=== PATIENT | female | born 1960 | race American Indian/Alaskan Native ===

== ENCOUNTER 2018-04-12 12:59 | Inpatient (IN) | payer OTHER, BC ==
[2018-04-12 17:33] VITALS: BMI 51.2
[2018-04-12] MEDS ORDERED: Oxycodone/Acetaminophen 5/325 mg Tab PO PRN (18:22)
[2018-04-12] MEDS ORDERED: Ergocalciferol 50,000 Intl Units Cap PO SCH (18:30)
[2018-04-12] MEDS: Oxycodone/Acetaminophen 5/325 mg Tab PO PRN (19:58)
[2018-04-12 20:28] VITALS: RESP 20
[2018-04-12] MEDS: ceFAZolin IV 2 gm in Dextrose 2 GM/50 ML BAG IVPB SCH (21:28)
--- NOTE | 2018-04-12 23:48 | CP.PCM.PN ---
Subjective - Subjective Subjective: dictated Objective - Vital Signs/Intake and Output Vital Signs (last 24 hours): Temp Pulse Resp BP Pulse Ox 100.3 F H 105 H 20 135/73 99 04/12/18 20:28 04/12/18 20:28 04/12/18 20:28 04/12/18 20:28 04/12/18 20:28 - Medications Medications: Current Medications Acetaminophen (Tylenol 325mg Tab) 650 mg PO Q4 PRN PRN Reason: Fever 101 degrees fahrenheit Acetaminophen (Tylenol 325mg Tab) 650 mg PO Q4 PRN PRN Reason: for pain level 1-3 Acetaminophen (Tylenol 325mg Tab) 650 mg PO Q4 PRN PRN Reason: for temp 101 Docusate Sodium (Colace) 100 mg PO BID [facility] Enoxaparin Sodium (Lovenox) 40 mg SC Q24H [facility]; Protocol Ergocalciferol (Drisdol 50,000 Intl Units Cap) 1 cap PO QWK [facility] Famotidine (Pepcid) 20 mg PO BID [facility] Ferrous Sulfate (Feosol) 325 mg PO DAILY [facility] Home Med (Iron/Folate No.6/Mv,Mins No.40 [Corvite Fe Tablet]) 1 each PO DAILY [facility] Home Med (Vitamin B Complex [Berroca]) 1 tab PO DAILY [facility] Cefazolin Sodium/Dextrose (Ancef Iv 2 Gm Duplex) 2 gm in 50 mls @ 50 mls/hr IVPB Q8H [facility] Last Admin: 04/12/18 21:28 Dose: 50 mls/hr Losartan Potassium (Cozaar) 100 mg PO DAILY [facility] Multivitamins/Minerals (Therapeutic-M Tab) 1 tab PO DAILY [facility] Oxybutynin Chloride (Ditropan Tab) 5 mg PO BID [facility] Oxycodone/Acetaminophen (Percocet 5/325 Mg Tab) 2 tab PO Q4H PRN PRN Reason: Pain, severe (8-10) Stop: 04/15/18 18:23 Last Admin: 04/12/18 19:58 Dose: 2 tab Oxycodone/Acetaminophen (Percocet 5/325 Mg Tab) 1 tab PO Q4 PRN PRN Reason: for pain level 4-7 Stop: 04/15/18 18:23
[2018-04-13] MEDS: Oxycodone/Acetaminophen 5/325 mg Tab PO PRN ×5 (01:07→22:26)
[2018-04-13] MEDS: ceFAZolin IV 2 gm in Dextrose 2 GM/50 ML BAG IVPB SCH ×3 (04:26→22:27)
[2018-04-13] MEDS: Enoxaparin 40 mg Syringe SC SCH (08:56)
[2018-04-13] MEDS ORDERED: Multivitamin With Minerals Tab PO SCH (09:00)
[2018-04-13] MEDS ORDERED: VITAMIN B COMPLEX PO SCH (09:00)
[2018-04-13 09:29] LABS: BASO # 0.1 K/uL (0.0-0.2); BASO % 0.9 % (0.0-2.0); EOS % 0.3 % (0.0-4.0); HEMOGLOBIN 10.2 g/dL (12.0-16.0); LYMPH # 2.4 K/uL (1.0-4.3); LYMPH % 23.1 % (20.0-40.0); MEAN CELL VOLUME 90.1 fl (81.0-99.0); MEAN CORPUSCULAR HEMOGLOBIN 29.8 pg (27.0-31.0); MEAN CORPUSCULAR HGB CONC 33.1 g/dL (33.0-37.0); MEAN PLATELET VOLUME 9.6 fl (7.2-11.7); MONO # 0.8 K/uL (0.0-0.8); MONO % 8.1 % (0.0-10.0); NEUT % 67.6 % (50.0-75.0); NRBC % 0.1 % (0.0-0.0); RBC 3.42 Mil/uL (3.80-5.20); RED CELL DISTRIBUTION WIDTH 14.3 % (11.5-14.5); WHITE BLOOD COUNT 10.3 K/uL (4.8-10.8)
[2018-04-13 09:45] LABS: BLOOD UREA NITROGEN 7 mg/dl (7-17); CALCIUM 9.2 mg/dL (8.4-10.2); GFR NON-AFRICAN AMERICAN > 60
[2018-04-13 09:47] LABS: ALBUMIN 4.2 g/dL (3.5-5.0); ALT/SGPT 8 U/L (9-52); AST/SGOT 45 U/L (14-36)
[2018-04-13] MEDS: Multivitamin With Minerals Tab PO SCH (12:24)
--- NOTE | 2018-04-13 17:14 | CP.PCM.CON ---
History of Present Illness - History of Present Illness History of Present Illness: Dr Joiner PMR consultation on Tatiana Jacobo, born 1960 who has been admitted to the TCU for FANY following an elective right TKR. Post op stable. No BM yet. Pain is controlled. No numbness or fever. Had been independent [employer] Review of Systems - Constitutional Constitutional: absent: Anorexia, Chills - EENT Eyes: absent: Change in Vision Ears: absent: Ear Discharge, Ear Pain Nose/Mouth/Throat: absent: Nasal Congestion, Nasal Discharge - Cardiovascular Cardiovascular: absent: Chest Pain, Chest Pain at Rest - Respiratory Respiratory: absent: Cough, Dyspnea, Hemoptysis - Gastrointestinal Gastrointestinal: Constipation. absent: Abdominal Pain - Musculoskeletal Musculoskeletal: absent: Numbness - Integumentary Integumentary: absent: Bleeding Lesions - Neurological Neurological: absent: Memory Loss, Paresthesias, Radicular Pain - Psychiatric Psychiatric: absent: Anxiety Past Patient History - Past Medical History & Family History Past Medical History?: Yes - Past Social History Smoking Status: Never Smoked Chewing Tobacco Use: No Cigar Use: No Alcohol: None Drugs: Denies Home Situation {Lives}: Friends (with a few steps) - CARDIAC Hx Cardiac Disorders: Yes Hx Hypercholesterolemia: Yes Hx Hypertension: Yes - PULMONARY Hx Respiratory Disorders: Yes Hx Sleep Apnea: Yes (CPAP) - NEUROLOGICAL Hx Neurological Disorder: Yes Other/Comment: HX: FREQUENT HEADACHES - HEENT Hx HEENT Problems: No - RENAL Hx Chronic Kidney Disease: No - ENDOCRINE/METABOLIC Hx Diabetes Mellitus Type 2: Yes - HEMATOLOGICAL/ONCOLOGICAL Hx AIDS: No Hx Human Immunodeficiency Virus (HIV): No - INTEGUMENTARY Hx Dermatological Problems: Yes Other/Comment: HX: CYST ON RIGHT WRIST - MUSCULOSKELETAL/RHEUMATOLOGICAL Hx Back Pain: Yes Hx Falls: No Hx Osteoarthritis: Yes - GASTROINTESTINAL Hx Gastrointestinal Disorders: Yes - GENITOURINARY/GYNECOLOGICAL Hx Genitourinary Disorders: Yes Other/Comment: HX: URINARY FREQUENCY. HX: FIBROID UTERUS - PSYCHIATRIC Hx Substance Use: No - SURGICAL HISTORY Hx Surgeries: Yes Hx Hysterectomy: Yes (PARTIAL HYSTERECTOMY) Other/Comment: HX: CYST REMOVED RIGHT WRIST, Rt TKR 04/09/18 - ANESTHESIA Hx Anesthesia: Yes Hx Anesthesia Reactions: No Hx Malignant Hyperthermia: No Meds Allergies/Adverse Reactions: Allergies Allergy/AdvReac Type Severity Reaction Status Date / Time No Known Allergies Allergy Verified 03/08/18 08:49 - Medications Medications: Current Medications Acetaminophen (Tylenol 325mg Tab) 650 mg PO Q4 PRN PRN Reason: Fever 101 degrees fahrenheit Acetaminophen (Tylenol 325mg Tab) 650 mg PO Q4 PRN PRN Reason: for pain level 1-3 Acetaminophen (Tylenol 325mg Tab) 650 mg PO Q4 PRN PRN Reason: for temp 101 Docusate Sodium (Colace) 100 mg PO BID [facility] Last Admin: 04/13/18 16:42 Dose: 100 mg Enoxaparin Sodium (Lovenox) 40 mg SC Q24H [facility]; Protocol Last Admin: 04/13/18 08:56 Dose: 40 mg Ergocalciferol (Drisdol 50,000 Intl Units Cap) 1 cap PO QWK [facility] Famotidine (Pepcid) 20 mg PO BID [facility] Last Admin: 04/13/18 16:42 Dose: 20 mg Ferrous Sulfate (Feosol) 325 mg PO DAILY [facility] Last Admin: 04/13/18 09:01 Dose: 325 mg Cefazolin Sodium/Dextrose (Ancef Iv 2 Gm Duplex) 2 gm in 50 mls @ 50 mls/hr IVPB Q8H [facility] Last Admin: 04/13/18 12:10 Dose: 50 mls/hr Lactulose (Enulose) 20 gm PO Q12 PRN PRN Reason: Constipation Losartan Potassium (Cozaar) 100 mg PO DAILY [facility] Last Admin: 04/13/18 08:56 Dose: 100 mg Multivitamins/Minerals (Therapeutic-M Tab) 1 tab PO DAILY [facility] Last Admin: 04/13/18 12:24 Dose: Not Given Oxybutynin Chloride (Ditropan Tab) 5 mg PO BID [facility] Last Admin: 04/13/18 16:42 Dose: 5 mg Oxycodone/Acetaminophen (Percocet 5/325 Mg Tab) 2 tab PO Q4H PRN PRN Reason: Pain, severe (8-10) Stop: 04/15/18 18:23 Last Admin: 04/13/18 16:42 Dose: 2 tab Oxycodone/Acetaminophen (Percocet 5/325 Mg Tab) 1 tab PO Q4 PRN PRN Reason: for pain level 4-7 Stop: 04/15/18 18:23 Physical Exam - Constitutional Appears: Non-toxic, No Acute Distress - Head Exam Head Exam: ATRAUMATIC, NORMOCEPHALIC - Eye Exam Eye Exam: EOMI - ENT Exam ENT Exam: Mucous Membranes Moist - Respiratory Exam Respiratory Exam: NORMAL BREATHING PATTERN - Cardiovascular Exam Cardiovascular Exam: REGULAR RHYTHM - GI/Abdominal Exam GI & Abdominal Exam: Normal Bowel Sounds - Extremities Exam Extremities exam: Negative for: calf tenderness - Neurological Exam Neurological exam: Alert, CN II-XII Intact, Oriented x3 - Psychiatric Exam Psychiatric exam: Normal Affect, Normal Mood - Skin Skin Exam: Warm Results - Vital Signs Recent Vital Signs: Last Vital Signs Temp 99.4 F 04/13/18 15:56 Pulse 95 H 04/13/18 15:56 Resp 20 04/13/18 15:56 BP 116/71 04/13/18 15:56 Pulse Ox 97 04/13/18 15:56 - Labs Result Diagrams: 04/13/18 09:20 04/13/18 09:20 Labs: Laboratory Results - last 24 hr 04/13/18 04/13/18 09:20 09:20 WBC 10.3 RBC 3.42 L Hgb 10.2 L Hct 30.8 L MCV 90.1 MCH 29.8 MCHC 33.1 RDW 14.3 Plt Count 310 MPV 9.6 Neut % (Auto) 67.6 Lymph % (Auto) 23.1 [place] % (Auto) 8.1 Eos % (Auto) 0.3 Baso % (Auto) 0.9 Neut # (Auto) 7.0 Lymph # (Auto) 2.4 [place] # (Auto) 0.8 Eos # (Auto) 0.0 Baso # (Auto) 0.1 Sodium 137 Potassium 4.3 Chloride 99 Carbon Dioxide 27 Anion Gap 15 BUN 7 Creatinine 0.7 Est GFR ( Amer) > 60 Est GFR (Non-Af Amer) > 60 Random Glucose 134 H Calcium 9.2 Total Bilirubin 0.8 AST 45 H D ALT 8 L Alkaline Phosphatase 87 Total Protein 8.4 H Albumin 4.2 Globulin 4.2 H Albumin/Globulin Ratio 1.0 Assessment & Plan - Assessment and Plan (Free Text) Assessment: 58 year old female s/p right TKR stable pain is controlled no neuro complaints PT/OT to continue to help increase functional independence Pain: controlled Vascular: no evidence of DVT GI: + constipation, increase bowel regimen Patient continues to be an excellent TCU rehabilitation candidate and will have continued focused PT, OT and recreational therapy to help facilitate a safe and appropriate d/c plan
[2018-04-14] MEDS: Oxycodone/Acetaminophen 5/325 mg Tab PO PRN ×5 (02:48→20:30)
[2018-04-14] MEDS: Enoxaparin 40 mg Syringe SC SCH (08:16)
[2018-04-14] MEDS: Multivitamin With Minerals Tab PO SCH (08:17)
--- NOTE | 2018-04-14 12:43 | CP.PCM.CON ---
History of Present Illness - History of Present Illness History of Present Illness: 58 yo female referred for ID eval for antibiotic management Went to [place] @ on 04/12 for right TKR synovial fluid analysis revealed 3300 WBC and sent for culture Had one low grade temp at but denies fever chills cough SOB or dysuria PMH- HTN , HLD, Hyperglycemia NKDA FH- HTN Review of Systems - Review of Systems All systems: reviewed and no additional remarkable complaints except - Constitutional Constitutional: As Per HPI. absent: Chills, Fever, Headache, Night Sweats - EENT Eyes: absent: As Per HPI, Blind Spots, Blurred Vision, Change in Vision, Decreased Night Vision, Diplopia, Discharge, Dry Eye, Exophthalmos, Floaters, Irritation, Itchy Eyes, Loss of Peripheral Vision, Pain, Photophobia, Requires Corrective Lenses, Sees Flashes, Spots in Vision, Tunnel Vision, Other Visual Disturbances, Loss of Vision, Other Ears: absent: As Per HPI, Decreased Hearing, Ear Discharge, Ear Pain, Tinnitus, Abnormal Hearing, Disequilibrium, Dizziness, Other Nose/Mouth/Throat: absent: As Per HPI, Epistaxis, Nasal Congestion, Nasal D ischarge, Nasal Obstruction, Nasal Trauma, Nose Pain, Post Nasal Drip, Sinus Pain, Sinus Pressure, Bleeding Gums, Change in Voice, Dental Pain, Dry Mouth, Dysphagia, Halitosis, Hoarsness, Lip Swelling, Mouth Lesions, Mouth Pain, Odynophagia, Sore Throat, Throat Swelling, Tongue Swelling, Facial Pain, Neck Pain, Neck Mass, Other - Cardiovascular Cardiovascular: absent: As Per HPI, Acrocyanosis, Chest Pain, Chest Pain at Rest, Chest Pain with Activity, Claudication, Diaphoresis, Dyspnea, Dyspnea on Exertion, Edema, Irregular Heart Rhythm, Pain Radiating to Arm/Neck/Jaw, Leg Edema, Leg Ulcers, Lightheadedness, Orthopnea, Palpitations, Paroxysmal Nocturnal Dyspnea, Pedal Edema, Radiating Pain, Rapid Heart Rate, Slow Heart Rate, Syncope, Other - Respiratory Respiratory: absent: As Per HPI, Cough, Dyspnea, Hemoptysis, Dyspnea on Exertion, Wheezing, Snoring, Stridor, Pain on Inspiration, Chest Congestion, Excessive Mucous Production, Change in Mucous Color, Pain with Coughing, Other - Gastrointestinal Gastrointestinal: absent: As Per HPI, Abdominal Pain, Belching, Bloating, Change in Bowel Habits, Change in Stool Character, Coffee Ground Emesis, Constipation, Cramping, Diarrhea, Dyspepsia, Dysphagia, Early Satiety, Excessive Flatus, Fecal Incontinence, Heartburn, Hematemesis, Hematochezia, Loose Stools, Melena, Nausea, Odynophagia, Temesmus, Vomiting, Other - Genitourinary Genitourinary: absent: As Per HPI, Change in Urinary Stream, Difficulty Urinating, Dysuria, Flank Pain, Hematuria, Pyuria, Nocturia, Urinary Incontinence, Urinary Frequency, Urinary Hesitance, Urinary Urgency, Voiding Freq/Small Amts, Freq UTI, Hx Renal/Bladder Calculi, Hx /Renal Surgery, Bladder Distension, Other - Reproductive: Female Reproductive:Female: absent: As Per HPI, Amenorrhea, Amenorrhea/ Control, Currently Menstual, Cycle <21 Days, Cycle >35 Days, Cycle Variable, Menses 1-7 Days, Menses >/= 8 Days, Menses Variable, Cycle > 4 Weeks Between, No Menses for 6 Months, Heavy Menses, Light Menses, Normal Menses, Spotting Between Cycles, S/P Hysterectomy, Menopausal, Post Menopausal, Premenarche, Abnormal Vaginal Bleeding, Dysmenorrhea, Dyspareunia, Genital Lesions, Genital Pruritis, Pelvic Pain, Prolapse Symptoms, Sexual Dysfunction, Vaginal Discharge, Vaginal Dryness, Vaginal Odor, Vaginal Pruritis, Other - Menstruation Menstruation: absent: As Per HPI, Amenorrhea, Amenorrhea/ Control, Currently Menstual, Cycle <21 Days, Cycle >35 Days, Cycle Variable, Menses 1-7 Days, Menses >/= 8 Days, Menses Variable, Cycle > 4 Weeks Between, No Menses for 6 Months, Heavy Menses, Light Menses, Normal Menses, Spotting Between Cycles, S/P Hysterectomy, Menopausal, Post Menopausal, Premenarche, Abnormal Vaginal Bleeding, Dysmenorrhea, Other - Musculoskeletal Musculoskeletal: As Per HPI - Integumentary Integumentary: absent: As Per HPI, Acne, Alopecia, Bleeding Lesions, Change in Hair, Change in Nails, Change in Pigmentation, Changing Lesions, Dry Skin, Erythema, Furuncle, Hirsutism, Lesions, New Lesions, Non-Healing Lesions, Photosensitivity, Pruritus, Rash, Skin Pain, Skin Ulcer, Sores, Striae, Swelling, Unusual Bruising, Wounds, Jaundice, Other - Neurological Neurological: absent: As Per HPI, Abnormal Gait, Abnormal Hearing, Abnormal Movements, Abnormal Speech, Behavioral Changes, Burning Sensations, Confusion, Convulsions, Disequilibrium, Dizziness, Numbness, Focal Weakness, Frequent Falls, Headaches, Lack of Coordination, Loss of Vision, Memory Loss, Paresthesias, Radicular Pain, Restless Legs, Sensory Deficit, Syncope, Tingling, Tremor, Vertigo, Weakness, Other Visual Disturbances, Other - Psychiatric Psychiatric: absent: As Per HPI, Abnormal Sleep Pattern, Anhedonia, Anxiety, Auditory Hallucinations, Behavioral Changes, Change in Appetite, Change in Libido, Confusion, Depression, Difficulty Concentrating, Hallucinations, Homicidal Ideation, Hopelessness, Irritability, Memory Loss, Mood Swings, Panic Attacks, Paranoia, Suicidal Ideation, Visual Hallucinations, Tactile Hallucinations, Other - Endocrine Endocrine: absent: As Per HPI, Change in Body Appearance, Change in Libido, Cold Intolorance, Deepening of Voice, Excessive Sweating, Fatigue, Flushing, Heat Intolorance, Increase in Ring/Shoe/Hat Size, Palpitations, Polydipsia, Polyphagia, Polyuria, Other - Hematologic/Lymphatic Hematologic: absent: As Per HPI, Easy Bleeding, Easy Bruising, Lymphadenopathy, Other Past Patient History - Past Medical History & Family History Past Medical History?: Yes - Past Social History Smoking Status: Never Smoked Chewing Tobacco Use: No Cigar Use: No Alcohol: None Drugs: Denies Home Situation {Lives}: Friends (with a few steps) - CARDIAC Hx Cardiac Disorders: Yes Hx Hypercholesterolemia: Yes Hx Hypertension: Yes - PULMONARY Hx Respiratory Disorders: Yes Hx Sleep Apnea: Yes (CPAP) - NEUROLOGICAL Hx Neurological Disorder: Yes Other/Comment: HX: FREQUENT HEADACHES - HEENT Hx HEENT Problems: No - RENAL Hx Chronic Kidney Disease: No - ENDOCRINE/METABOLIC Hx Diabetes Mellitus Type 2: Yes - HEMATOLOGICAL/ONCOLOGICAL Hx AIDS: No Hx Human Immunodeficiency Virus (HIV): No - INTEGUMENTARY Hx Dermatological Problems: Yes Other/Comment: HX: CYST ON RIGHT WRIST - MUSCULOSKELETAL/RHEUMATOLOGICAL Hx Back Pain: Yes Hx Falls: No Hx Osteoarthritis: Yes - GASTROINTESTINAL Hx Gastrointestinal Disorders: Yes - GENITOURINARY/GYNECOLOGICAL Hx Genitourinary Disorders: Yes Other/Comment: HX: URINARY FREQUENCY. HX: FIBROID UTERUS - PSYCHIATRIC Hx Substance Use: No - SURGICAL HISTORY Hx Surgeries: Yes Hx Hysterectomy: Yes (PARTIAL HYSTERECTOMY) Other/Comment: HX: CYST REMOVED RIGHT WRIST, Rt TKR 04/09/18 - ANESTHESIA Hx Anesthesia: Yes Hx Anesthesia Reactions: No Hx Malignant Hyperthermia: No Meds Allergies/Adverse Reactions: Allergies Allergy/AdvReac Type Severity Reaction Status Date / Time No Known Allergies Allergy Verified 03/08/18 08:49 - Medications Medications: Current Medications Acetaminophen (Tylenol 325mg Tab) 650 mg PO Q4 PRN PRN Reason: Fever 101 degrees fahrenheit Acetaminophen (Tylenol 325mg Tab) 650 mg PO Q4 PRN PRN Reason: for pain level 1-3 Acetaminophen (Tylenol 325mg Tab) 650 mg PO Q4 PRN PRN Reason: for temp 101 Docusate Sodium (Colace) 100 mg PO BID [facility] Last Admin: 04/14/18 08:18 Dose: 100 mg Enoxaparin Sodium (Lovenox) 40 mg SC Q24H [facility]; Protocol Last Admin: 04/14/18 08:16 Dose: 40 mg Ergocalciferol (Drisdol 50,000 Intl Units Cap) 1 cap PO QWK [facility] Famotidine (Pepcid) 20 mg PO BID [facility] Last Admin: 04/14/18 08:17 Dose: 20 mg Ferrous Sulfate (Feosol) 325 mg PO DAILY [facility] Last Admin: 04/14/18 08:19 Dose: 325 mg Cefazolin Sodium/Dextrose (Ancef Iv 2 Gm Duplex) 2 gm in 50 mls @ 50 mls/hr IVPB Q8@0500,1300,2100 [facility]; Protocol Lactulose (Enulose) 20 gm PO Q12 PRN PRN Reason: Constipation Last Admin: 04/14/18 07:00 Dose: 20 gm Losartan Potassium (Cozaar) 100 mg PO DAILY [facility] Last Admin: 04/14/18 08:17 Dose: 100 mg Multivitamins/Minerals (Therapeutic-M Tab) 1 tab PO DAILY [facility] Last Admin: 04/14/18 08:17 Dose: 1 tab Oxybutynin Chloride (Ditropan Tab) 5 mg PO BID [facility] Last Admin: 04/14/18 08:17 Dose: 5 mg Oxycodone/Acetaminophen (Percocet 5/325 Mg Tab) 2 tab PO Q4H PRN PRN Reason: Pain, severe (8-10) Stop: 04/15/18 18:23 Last Admin: 04/14/18 10:55 Dose: 2 tab Oxycodone/Acetaminophen (Percocet 5/325 Mg Tab) 1 tab PO Q4 PRN PRN Reason: for pain level 4-7 Stop: 04/15/18 18:23 Physical Exam - Constitutional Appears: Non-toxic, No Acute Distress, Chronically Ill - Head Exam Head Exam: ATRAUMATIC, NORMAL INSPECTION, NORMOCEPHALIC - Eye Exam Eye Exam: absent: Scleral icterus - ENT Exam ENT Exam: Mucous Membranes Dry - Neck Exam Neck exam: Negative for: Lymphadenopathy - Respiratory Exam Respiratory Exam: Decreased Breath Sounds - Cardiovascular Exam Cardiovascular Exam: REGULAR RHYTHM - GI/Abdominal Exam GI & Abdominal Exam: Diminished Bowel Sounds, Soft. absent: Tenderness - Rectal Exam Rectal Exam: Deferred - Exam Exam: NORMAL INSPECTION - Extremities Exam Extremities exam: Positive for: joint swelling, normal capillary refill, tenderness, pedal pulses present. Negative for: calf tenderness, normal inspection, pedal edema Additional comments: right leg soft cast in place no drainage or pus reported - Back Exam Back exam: absent: CVA tenderness (L), CVA tenderness (R) - Neurological Exam Neurological exam: Alert, CN II-XII Intact, Oriented x3, Reflexes Normal - Psychiatric Exam Psychiatric exam: Normal Mood - Skin Skin Exam: Dry, Intact Results - Vital Signs Recent Vital Signs: Last Vital Signs Temp 99.1 F 04/14/18 08:13 Pulse 90 04/14/18 11:04 Resp 20 04/14/18 08:13 BP 108/78 04/14/18 11:04 Pulse Ox 99 04/14/18 11:04 - Labs Result Diagrams: 04/13/18 09:20 04/13/18 09:20 Assessment & Plan (1) Morbid obesity with BMI of 50.0-59.9, adult Status: Acute (2) Primary osteoarthritis of right knee Status: Acute - Assessment and Plan (Free Text) Assessment: s/p TKR - had low grade temp post op but no s's or s's of infection at present await synovial fluid cultures and ortho comment In the meantime cont ancef
[2018-04-14] MEDS: ceFAZolin IV 2 gm in Dextrose 2 GM/50 ML BAG IVPB SCH ×2 (12:45→20:31)
[2018-04-14 16:20] LABS: SQUAMOUS EPITHIAL 6 /hpf (0-5); URINE BACTERIA RARE (<OCC); URINE BILIRUBIN NEGATIVE (NEGATIVE); URINE BLOOD LARGE (NEGATIVE); URINE CLARITY CLOUDY (Clear); URINE COLOR RED (YELLOW); URINE GLUCOSE (UA) NEG (NEGATIVE); URINE LEUKOCYTE ESTERASE NEG Leu/uL (Negative); URINE PROTEIN 30 mg/dL (NEGATIVE); URINE UROBILINOGEN 0.2-1.0 mg/dL (0.2-1.0)
[2018-04-15] MEDS: Oxycodone/Acetaminophen 5/325 mg Tab PO PRN ×5 (00:22→21:23)
[2018-04-15] MEDS: ceFAZolin IV 2 gm in Dextrose 2 GM/50 ML BAG IVPB SCH ×3 (05:41→21:22)
[2018-04-15 06:19] LABS: HEMOGLOBIN 9.3 g/dL (12.0-16.0); MEAN CELL VOLUME 89.9 fl (81.0-99.0); MEAN CORPUSCULAR HEMOGLOBIN 29.2 pg (27.0-31.0); MEAN CORPUSCULAR HGB CONC 32.5 g/dL (33.0-37.0); RBC 3.19 Mil/uL (3.80-5.20); RED CELL DISTRIBUTION WIDTH 14.1 % (11.5-14.5)
--- NOTE | 2018-04-15 08:15 | CP.PCM.HP ---
History of Present Illness - History of Present Illness History of Present Illness: CC: Right S/P TKR HPI: A 58yoF with H/O B/L Knee Primary OA, and Chronic lower back got elective Right TKR. C/O Pain to the surgical site and alleviated for the most part with Pain Medication. Also C/o Constipation. Admitted in TCU for FANY, and IV antibiotics as patient spiked fever once Present on Admission - Present on Admission Any Indicators Present on Admission: No Review of Systems - Review of Systems All systems: reviewed and no additional remarkable complaints except Review of Systems: as per HPI Past Patient History - Past Medical History & Family History Past Medical History?: Yes - Past Social History Smoking Status: Never Smoked Chewing Tobacco Use: No Cigar Use: No Alcohol: None Drugs: Denies Home Situation {Lives}: Friends (with a few steps) - CARDIAC Hx Cardiac Disorders: Yes Hx Hypercholesterolemia: Yes Hx Hypertension: Yes - PULMONARY Hx Respiratory Disorders: Yes Hx Sleep Apnea: Yes (CPAP) - NEUROLOGICAL Hx Neurological Disorder: Yes Other/Comment: HX: FREQUENT HEADACHES - HEENT Hx HEENT Problems: No - RENAL Hx Chronic Kidney Disease: No - ENDOCRINE/METABOLIC Hx Diabetes Mellitus Type 2: Yes - HEMATOLOGICAL/ONCOLOGICAL Hx AIDS: No Hx Human Immunodeficiency Virus (HIV): No - INTEGUMENTARY Hx Dermatological Problems: Yes Other/Comment: HX: CYST ON RIGHT WRIST - MUSCULOSKELETAL/RHEUMATOLOGICAL Hx Back Pain: Yes Hx Falls: No Hx Osteoarthritis: Yes - GASTROINTESTINAL Hx Gastrointestinal Disorders: Yes - GENITOURINARY/GYNECOLOGICAL Hx Genitourinary Disorders: Yes Other/Comment: HX: URINARY FREQUENCY. HX: FIBROID UTERUS - PSYCHIATRIC Hx Substance Use: No - SURGICAL HISTORY Hx Surgeries: Yes Hx Hysterectomy: Yes (PARTIAL HYSTERECTOMY) Other/Comment: HX: CYST REMOVED RIGHT WRIST, Rt TKR 04/09/18 - ANESTHESIA Hx Anesthesia: Yes Hx Anesthesia Reactions: No Hx Malignant Hyperthermia: No Meds Allergies/Adverse Reactions: Allergies Allergy/AdvReac Type Severity Reaction Status Date / Time No Known Allergies Allergy Verified 03/08/18 08:49 Physical Exam - Constitutional Appears: No Acute Distress - Head Exam Head Exam: ATRAUMATIC, NORMAL INSPECTION, NORMOCEPHALIC - Eye Exam Eye Exam: EOMI, Normal appearance, PERRL Pupil Exam: NORMAL ACCOMODATION, PERRL - ENT Exam ENT Exam: Mucous Membranes Moist, Normal Exam - Neck Exam Neck exam: Positive for: Normal Inspection - Respiratory Exam Respiratory Exam: Clear to Auscultation Bilateral, NORMAL BREATHING PATTERN - Cardiovascular Exam Cardiovascular Exam: REGULAR RHYTHM, +S1, +S4 - GI/Abdominal Exam GI & Abdominal Exam: Soft. absent: Tenderness - Exam Exam: Circumcision, NORMAL INSPECTION External exam: NORMAL EXTERNAL EXAM Speculum exam: NORMAL SPECULUM EXAM Bimanual exam: NORMAL BIMANUAL EXAM - Extremities Exam Extremities exam: Positive for: normal inspection - Back Exam Back exam: NORMAL INSPECTION - Neurological Exam Neurological exam: Alert, CN II-XII Intact, Normal Gait, Oriented x3, Reflexes Normal - Psychiatric Exam Psychiatric exam: Normal Affect, Normal Mood - Skin Skin Exam: Dry, Intact, Normal Color, Warm Results - Vital Signs Recent Vital Signs: Last Vital Signs Temp 99.3 F 04/14/18 19:34 Pulse 91 H 04/14/18 19:34 Resp 20 04/14/18 19:34 BP 112/71 04/14/18 19:34 Pulse Ox 99 04/14/18 19:34 - Labs Result Diagrams: 04/15/18 05:40 04/13/18 09:20 Labs: Laboratory Results - last 24 hr 04/14/18 04/15/18 16:05 05:40 WBC 8.0 RBC 3.19 L Hgb 9.3 L Hct 28.7 L MCV 89.9 MCH 29.2 MCHC 32.5 L RDW 14.1 Plt Count 373 Urine Color Red Urine Clarity Cloudy Urine pH 6.0 Ur Specific [place] 1.018 Urine Protein 30 Urine Glucose (UA) Neg Urine Ketones Negative Urine Blood Large Urine Nitrate Negative Urine Bilirubin Negative Urine Urobilinogen 0.2-1.0 Ur Leukocyte Esterase Neg Urine RBC (Auto) 2408 H Urine Microscopic WBC 1 Ur Squamous Epith Cells 6 H Urine Bacteria Rare Assessment & Plan (1) Constipation Status: Acute (2) Status post right knee replacement Status: Acute (3) Hypertension Status: Chronic (4) Morbid obesity with BMI of 50.0-59.9, adult Status: Chronic (5) Primary osteoarthritis of right knee Status: Chronic - Assessment and Plan (Free Text) Plan: Continue Meds as per MAR Add Lactulose 20gm BID PRN for Constipation Continue IV Cefazolin ID Consult [employer] Supervisor Consult PT/OT
--- NOTE | 2018-04-15 08:16 | CP.PCM.PN ---
Subjective - Date & Time of Evaluation Date of Evaluation: 04/14/18 Time of Evaluation: 14:05 - Subjective Subjective: Seen and examined at the bed side. Blood in the stool and urine after having a difficult BMV due to constipation. Continue to complain pain to the right knee, aggravated by movement. Denies fever or chills. ID, Vehicle Assembly Inspector and the Ortho onboard. Objective - Vital Signs/Intake and Output Vital Signs (last 24 hours): Temp Pulse Resp BP Pulse Ox 99.3 F 91 H 20 112/71 99 04/14/18 19:34 04/14/18 19:34 04/14/18 19:34 04/14/18 19:34 04/14/18 19:34 - Medications Medications: Current Medications Acetaminophen (Tylenol 325mg Tab) 650 mg PO Q4 PRN PRN Reason: Fever 101 degrees fahrenheit Acetaminophen (Tylenol 325mg Tab) 650 mg PO Q4 PRN PRN Reason: for pain level 1-3 Acetaminophen (Tylenol 325mg Tab) 650 mg PO Q4 PRN PRN Reason: for temp 101 Docusate Sodium (Colace) 100 mg PO BID [facility] Last Admin: 04/14/18 16:28 Dose: 100 mg Enoxaparin Sodium (Lovenox) 40 mg SC Q24H [facility]; Protocol Last Admin: 04/14/18 08:16 Dose: 40 mg Ergocalciferol (Drisdol 50,000 Intl Units Cap) 1 cap PO QWK [facility] Famotidine (Pepcid) 20 mg PO BID [facility] Last Admin: 04/14/18 16:28 Dose: 20 mg Ferrous Sulfate (Feosol) 325 mg PO DAILY [facility] Last Admin: 04/14/18 08:19 Dose: 325 mg Cefazolin Sodium/Dextrose (Ancef Iv 2 Gm Duplex) 2 gm in 50 mls @ 50 mls/hr IVPB Q8@0500,1300,2100 [facility]; Protocol Last Admin: 04/15/18 05:41 Dose: 50 mls/hr Lactulose (Enulose) 20 gm PO Q12 PRN PRN Reason: Constipation Last Admin: 04/14/18 07:00 Dose: 20 gm Losartan Potassium (Cozaar) 100 mg PO DAILY [facility] Last Admin: 04/14/18 08:17 Dose: 100 mg Multivitamins/Minerals (Therapeutic-M Tab) 1 tab PO DAILY [facility] Last Admin: 04/14/18 08:17 Dose: 1 tab Oxybutynin Chloride (Ditropan Tab) 5 mg PO BID [facility] Last Admin: 04/14/18 16:28 Dose: 5 mg Oxycodone/Acetaminophen (Percocet 5/325 Mg Tab) 2 tab PO Q4H PRN PRN Reason: Pain, severe (8-10) Stop: 04/15/18 18:23 Last Admin: 04/15/18 05:40 Dose: 2 tab Oxycodone/Acetaminophen (Percocet 5/325 Mg Tab) 1 tab PO Q4 PRN PRN Reason: for pain level 4-7 Stop: 04/15/18 18:23 - Labs Labs: 04/15/18 05:40 04/13/18 09:20 Assessment and Plan (1) Status post right knee replacement Assessment & Plan: Duet to Severe OA Status: Acute (2) Hypertension Status: Chronic (3) Morbid obesity with BMI of 50.0-59.9, adult Status: Chronic (4) Primary osteoarthritis of right knee Status: Chronic - Assessment and Plan (Free Text) Plan: Continue Current care including PT/OT U/A Continue Lactulose PRN
[2018-04-15] MEDS: Multivitamin With Minerals Tab PO SCH (08:39)
--- NOTE | 2018-04-15 10:25 | CP.PCM.PN ---
Subjective - Date & Time of Evaluation Date of Evaluation: 04/15/18 Time of Evaluation: 08:00 - Subjective Subjective: Patient seen and examined at bedside comfortable. Blood found in stool/urine yesterday, Dr. Genesis pressley. Pain well controlled. Tolerating PT well. No other complaints. Denies CP/SOB/fever/[place]. Objective - Vital Signs/Intake and Output Vital Signs (last 24 hours): Temp Pulse Resp BP Pulse Ox 99.3 F 81 20 117/74 99 04/14/18 19:34 04/15/18 08:38 04/14/18 19:34 04/15/18 08:38 04/14/18 19:34 - Medications Medications: Current Medications Acetaminophen (Tylenol 325mg Tab) 650 mg PO Q4 PRN PRN Reason: Fever 101 degrees fahrenheit Acetaminophen (Tylenol 325mg Tab) 650 mg PO Q4 PRN PRN Reason: for pain level 1-3 Acetaminophen (Tylenol 325mg Tab) 650 mg PO Q4 PRN PRN Reason: for temp 101 Docusate Sodium (Colace) 100 mg PO BID [facility] Last Admin: 04/15/18 08:38 Dose: 100 mg Enoxaparin Sodium (Lovenox) 40 mg SC Q24H [facility]; Protocol Last Admin: 04/14/18 08:16 Dose: 40 mg Ergocalciferol (Drisdol 50,000 Intl Units Cap) 1 cap PO QWK [facility] Famotidine (Pepcid) 20 mg PO BID [facility] Last Admin: 04/15/18 08:39 Dose: 20 mg Ferrous Sulfate (Feosol) 325 mg PO DAILY [facility] Last Admin: 04/15/18 08:39 Dose: 325 mg Cefazolin Sodium/Dextrose (Ancef Iv 2 Gm Duplex) 2 gm in 50 mls @ 50 mls/hr IVPB Q8@0500,1300,2100 [facility]; Protocol Last Admin: 04/15/18 05:41 Dose: 50 mls/hr Lactulose (Enulose) 20 gm PO Q12 PRN PRN Reason: Constipation Last Admin: 04/14/18 07:00 Dose: 20 gm Losartan Potassium (Cozaar) 100 mg PO DAILY [facility] Last Admin: 04/15/18 08:38 Dose: 100 mg Multivitamins/Minerals (Therapeutic-M Tab) 1 tab PO DAILY [facility] Last Admin: 04/15/18 08:39 Dose: 1 tab Oxybutynin Chloride (Ditropan Tab) 5 mg PO BID [facility] Last Admin: 04/15/18 08:39 Dose: 5 mg Oxycodone/Acetaminophen (Percocet 5/325 Mg Tab) 2 tab PO Q4H PRN PRN Reason: Pain, severe (8-10) Stop: 04/15/18 18:23 Last Admin: 04/15/18 09:56 Dose: 2 tab Oxycodone/Acetaminophen (Percocet 5/325 Mg Tab) 1 tab PO Q4 PRN PRN Reason: for pain level 4-7 Stop: 04/15/18 18:23 - Labs Labs: 04/15/18 05:40 04/13/18 09:20 - Extremities Exam Additional comments: R knee: Dressings CDI, mild swelling 2nd to surgery wound CDI with fredrick sensation intact SP/DP/TN motor intact EHL/FHL/TA/G pedal pulses intact calves soft NT Assessment and Plan (1) Status post right knee replacement Assessment & Plan: POD#5 s/p R TKA -PT/OT NWB for 2 weeks postop, then TTWB x 2weeks and progress every two weeks thereafter -DVT ppx -CPM daily and knee immobilizer only when OOB ambulating -Dressings changed -above d/w Dr. Daniel Randolph in agreement Status: Acute
[2018-04-15] MEDS: Enoxaparin 40 mg Syringe SC SCH (11:08)
[2018-04-15] MEDS ORDERED: Oxycodone/Acetaminophen 5/325 mg Tab PO PRN (18:22)
--- NOTE | 2018-04-15 19:08 | CP.PCM.PN ---
Subjective - Date & Time of Evaluation Date of Evaluation: 04/15/18 Time of Evaluation: 19:07 - Subjective Subjective: Patient seen in the room doing well no CP/SOB feels good in therapies and notes improvement with gait and sit to stand as well denies constipation issues continue current care pain is controlled Objective - Vital Signs/Intake and Output Vital Signs (last 24 hours): Temp Pulse Resp BP Pulse Ox 98.8 F 84 20 114/72 100 04/15/18 17:30 04/15/18 17:30 04/15/18 17:30 04/15/18 17:30 04/15/18 17:30 - Medications Medications: Current Medications Acetaminophen (Tylenol 325mg Tab) 650 mg PO Q4 PRN PRN Reason: Fever 101 degrees fahrenheit Acetaminophen (Tylenol 325mg Tab) 650 mg PO Q4 PRN PRN Reason: for pain level 1-3 Acetaminophen (Tylenol 325mg Tab) 650 mg PO Q4 PRN PRN Reason: for temp 101 Docusate Sodium (Colace) 100 mg PO BID [facility] Last Admin: 04/15/18 16:27 Dose: 100 mg Enoxaparin Sodium (Lovenox) 40 mg SC Q24H [facility]; Protocol Last Admin: 04/15/18 11:08 Dose: 40 mg Ergocalciferol (Drisdol 50,000 Intl Units Cap) 1 cap PO QWK [facility] Famotidine (Pepcid) 20 mg PO BID [facility] Last Admin: 04/15/18 16:27 Dose: 20 mg Ferrous Sulfate (Feosol) 325 mg PO DAILY [facility] Last Admin: 04/15/18 08:39 Dose: 325 mg Cefazolin Sodium/Dextrose (Ancef Iv 2 Gm Duplex) 2 gm in 50 mls @ 50 mls/hr IVPB Q8@0500,1300,2100 [facility]; Protocol Last Admin: 04/15/18 13:03 Dose: 50 mls/hr Lactulose (Enulose) 20 gm PO Q12 PRN PRN Reason: Constipation Last Admin: 04/14/18 07:00 Dose: 20 gm Losartan Potassium (Cozaar) 100 mg PO DAILY [facility] Last Admin: 04/15/18 08:38 Dose: 100 mg Multivitamins/Minerals (Therapeutic-M Tab) 1 tab PO DAILY [facility] Last Admin: 04/15/18 08:39 Dose: 1 tab Oxybutynin Chloride (Ditropan Tab) 5 mg PO BID [facility] Last Admin: 04/15/18 16:27 Dose: 5 mg Oxycodone/Acetaminophen (Percocet 5/325 Mg Tab) 2 tab PO Q4 PRN PRN Reason: Pain, severe (8-10) Stop: 04/18/18 18:18 Oxycodone/Acetaminophen (Percocet 5/325 Mg Tab) 1 tab PO Q4 PRN PRN Reason: for pain level 4-7 Stop: 04/18/18 18:23 Zolpidem Tartrate (Ambien) 5 mg PO HS PRN PRN Reason: Insomnia - Labs Labs: 04/15/18 05:40 04/13/18 09:20
[2018-04-16] MEDS: Oxycodone/Acetaminophen 5/325 mg Tab PO PRN ×4 (04:15→21:44)
[2018-04-16] MEDS: ceFAZolin IV 2 gm in Dextrose 2 GM/50 ML BAG IVPB SCH (04:15)
[2018-04-16 10:02] LABS: HEMOGLOBIN 8.5 g/dL (12.0-16.0); MEAN CELL VOLUME 91.2 fl (81.0-99.0); MEAN CORPUSCULAR HEMOGLOBIN 29.8 pg (27.0-31.0); MEAN CORPUSCULAR HGB CONC 32.6 g/dL (33.0-37.0); RBC 2.87 Mil/uL (3.80-5.20); RED CELL DISTRIBUTION WIDTH 14.5 % (11.5-14.5); WHITE BLOOD COUNT 6.7 K/uL (4.8-10.8)
[2018-04-16] MEDS: Enoxaparin 40 mg Syringe SC SCH (12:35)
[2018-04-16] MEDS: Multivitamin With Minerals Tab PO SCH (12:36)
--- NOTE | 2018-04-16 17:08 | CP.PCM.PN ---
Subjective - Date & Time of Evaluation Date of Evaluation: 04/16/18 Time of Evaluation: 17:08 - Subjective Subjective: Patient seen and examined at bedside comfortable. Pain well controlled. Abdominal and transvaginal Ultrasounds performed today to evaluate vaginal bleeding. No acute events overnight. No new complaints. Objective - Vital Signs/Intake and Output Vital Signs (last 24 hours): Temp Pulse Resp BP Pulse Ox 99.6 F 87 20 102/70 100 04/16/18 15:51 04/16/18 15:51 04/16/18 15:51 04/16/18 15:51 04/16/18 15:51 - Medications Medications: Current Medications Acetaminophen (Tylenol 325mg Tab) 650 mg PO Q4 PRN PRN Reason: Fever 101 degrees fahrenheit Acetaminophen (Tylenol 325mg Tab) 650 mg PO Q4 PRN PRN Reason: for pain level 1-3 Docusate Sodium (Colace) 100 mg PO BID [facility] Last Admin: 04/16/18 16:31 Dose: 100 mg Enoxaparin Sodium (Lovenox) 40 mg SC Q24H [facility]; Protocol Last Admin: 04/16/18 12:35 Dose: 40 mg Ergocalciferol (Drisdol 50,000 Intl Units Cap) 1 cap PO QWK [facility] Famotidine (Pepcid) 20 mg PO BID [facility] Last Admin: 04/16/18 16:31 Dose: 20 mg Ferrous Sulfate (Feosol) 325 mg PO DAILY [facility] Last Admin: 04/16/18 12:35 Dose: 325 mg Lactulose (Enulose) 20 gm PO Q12 PRN PRN Reason: Constipation Last Admin: 04/14/18 07:00 Dose: 20 gm Losartan Potassium (Cozaar) 100 mg PO DAILY [facility] Last Admin: 04/16/18 12:35 Dose: 100 mg Multivitamins/Minerals (Therapeutic-M Tab) 1 tab PO DAILY [facility] Last Admin: 04/16/18 12:36 Dose: 1 tab Oxybutynin Chloride (Ditropan Tab) 5 mg PO BID [facility] Last Admin: 04/16/18 16:31 Dose: 5 mg Oxycodone/Acetaminophen (Percocet 5/325 Mg Tab) 2 tab PO Q4 PRN PRN Reason: Pain, severe (8-10) Stop: 04/18/18 18:18 Last Admin: 04/16/18 16:33 Dose: 2 tab Oxycodone/Acetaminophen (Percocet 5/325 Mg Tab) 1 tab PO Q4 PRN PRN Reason: for pain level 4-7 Stop: 04/18/18 18:23 Zolpidem Tartrate (Ambien) 5 mg PO HS PRN PRN Reason: Insomnia - Labs Labs: 04/16/18 09:04 04/13/18 09:20 - Extremities Exam Additional comments: R knee: In CPM Dressings CDI, mild swelling 2nd to surgery wound CDI with fredrick sensation intact SP/DP/TN motor intact EHL/FHL/TA/G pedal pulses intact calves soft NT Assessment and Plan (1) Status post right knee replacement Assessment & Plan: POD#6 s/p R TKA -PT/OT NWB for 2 weeks postop, then TTWB x 2weeks, advance every two weeks -DVT ppx -CPM as per order and knee immobilizer only when OOB ambulating -above d/w Dr. Daniel Randolph in agreement Status: Acute
--- NOTE | 2018-04-16 18:07 | CP.PCM.PN ---
Subjective - Date & Time of Evaluation Date of Evaluation: 04/16/18 Time of Evaluation: 18:05 - Subjective Subjective: Tatiana Jacobo, born 1960 who has been admitted to the TCU for FANY following an elective right TKR. Post op stable. Had a BM on Sunday04/14/18 after medications, but no BM since. Pain is controlled. No numbness or fever. Had been independent H[employer] F[employer]ER. On the CPM machine now no strike through the bandage Objective - Vital Signs/Intake and Output Vital Signs (last 24 hours): Temp Pulse Resp BP Pulse Ox 99.6 F 87 20 102/70 100 04/16/18 15:51 04/16/18 15:51 04/16/18 15:51 04/16/18 15:51 04/16/18 15:51 - Medications Medications: Current Medications Acetaminophen (Tylenol 325mg Tab) 650 mg PO Q4 PRN PRN Reason: Fever 101 degrees fahrenheit Acetaminophen (Tylenol 325mg Tab) 650 mg PO Q4 PRN PRN Reason: for pain level 1-3 Docusate Sodium (Colace) 100 mg PO BID [facility] Last Admin: 04/16/18 16:31 Dose: 100 mg Enoxaparin Sodium (Lovenox) 40 mg SC Q24H [facility]; Protocol Last Admin: 04/16/18 12:35 Dose: 40 mg Ergocalciferol (Drisdol 50,000 Intl Units Cap) 1 cap PO QWK [facility] Famotidine (Pepcid) 20 mg PO BID [facility] Last Admin: 04/16/18 16:31 Dose: 20 mg Ferrous Sulfate (Feosol) 325 mg PO DAILY [facility] Last Admin: 04/16/18 12:35 Dose: 325 mg Lactulose (Enulose) 20 gm PO Q12 PRN PRN Reason: Constipation Last Admin: 04/14/18 07:00 Dose: 20 gm Losartan Potassium (Cozaar) 100 mg PO DAILY [facility] Last Admin: 04/16/18 12:35 Dose: 100 mg Multivitamins/Minerals (Therapeutic-M Tab) 1 tab PO DAILY [facility] Last Admin: 04/16/18 12:36 Dose: 1 tab Oxybutynin Chloride (Ditropan Tab) 5 mg PO BID [facility] Last Admin: 04/16/18 16:31 Dose: 5 mg Oxycodone/Acetaminophen (Percocet 5/325 Mg Tab) 2 tab PO Q4 PRN PRN Reason: Pain, severe (8-10) Stop: 04/18/18 18:18 Last Admin: 04/16/18 16:33 Dose: 2 tab Oxycodone/Acetaminophen (Percocet 5/325 Mg Tab) 1 tab PO Q4 PRN PRN Reason: for pain level 4-7 Stop: 04/18/18 18:23 Zolpidem Tartrate (Ambien) 5 mg PO HS PRN PRN Reason: Insomnia - Labs Labs: 04/16/18 09:04 04/13/18 09:20 - Constitutional Appears: Well, Non-toxic, No Acute Distress - Head Exam Head Exam: ATRAUMATIC, NORMAL INSPECTION, NORMOCEPHALIC - Eye Exam Eye Exam: EOMI - ENT Exam ENT Exam: Mucous Membranes Moist - Respiratory Exam Respiratory Exam: absent: Wheezes, Respiratory Distress - Cardiovascular Exam Cardiovascular Exam: REGULAR RHYTHM - GI/Abdominal Exam GI & Abdominal Exam: Distended. absent: Firm - Neurological Exam Neurological Exam: Alert, Awake, CN II-XII Intact, Oriented x3 - Psychiatric Exam Psychiatric exam: Normal Affect, Normal Mood - Skin Skin Exam: Warm Assessment and Plan - Assessment and Plan (Free Text) Assessment: 58 year old s/p right TKR + constipation, will give another dose of lactulose pain is controlled continue PT/OT
[2018-04-17] MEDS: Oxycodone/Acetaminophen 5/325 mg Tab PO PRN ×5 (05:44→23:10)
--- NOTE | 2018-04-17 06:32 | CP.PCM.PN ---
Subjective - Date & Time of Evaluation Date of Evaluation: 04/15/18 Time of Evaluation: 20:25 - Subjective Subjective: Seen and examined at the bed side. Bleeding Vaginally, scanty amount. No fever or chills. Objective - Vital Signs/Intake and Output Vital Signs (last 24 hours): Temp Pulse Resp BP Pulse Ox 99.6 F 87 20 123/71 99 04/16/18 19:48 04/16/18 19:48 04/16/18 19:48 04/16/18 19:48 04/16/18 19:48 - Medications Medications: Current Medications Acetaminophen (Tylenol 325mg Tab) 650 mg PO Q4 PRN PRN Reason: Fever 101 degrees fahrenheit Acetaminophen (Tylenol 325mg Tab) 650 mg PO Q4 PRN PRN Reason: for pain level 1-3 Docusate Sodium (Colace) 100 mg PO BID [facility] Last Admin: 04/16/18 16:31 Dose: 100 mg Enoxaparin Sodium (Lovenox) 40 mg SC Q24H [facility]; Protocol Last Admin: 04/16/18 12:35 Dose: 40 mg Ergocalciferol (Drisdol 50,000 Intl Units Cap) 1 cap PO QWK [facility] Famotidine (Pepcid) 20 mg PO BID [facility] Last Admin: 04/16/18 16:31 Dose: 20 mg Ferrous Sulfate (Feosol) 325 mg PO DAILY [facility] Last Admin: 04/16/18 12:35 Dose: 325 mg Lactulose (Enulose) 20 gm PO Q12 PRN PRN Reason: Constipation Last Admin: 04/16/18 21:44 Dose: 20 gm Losartan Potassium (Cozaar) 100 mg PO DAILY [facility] Last Admin: 04/16/18 12:35 Dose: 100 mg Multivitamins/Minerals (Therapeutic-M Tab) 1 tab PO DAILY [facility] Last Admin: 04/16/18 12:36 Dose: 1 tab Oxybutynin Chloride (Ditropan Tab) 5 mg PO BID [facility] Last Admin: 04/16/18 16:31 Dose: 5 mg Oxycodone/Acetaminophen (Percocet 5/325 Mg Tab) 2 tab PO Q4 PRN PRN Reason: Pain, severe (8-10) Stop: 04/18/18 18:18 Last Admin: 04/17/18 05:44 Dose: 2 tab Oxycodone/Acetaminophen (Percocet 5/325 Mg Tab) 1 tab PO Q4 PRN PRN Reason: for pain level 4-7 Stop: 04/18/18 18:23 Zolpidem Tartrate (Ambien) 5 mg PO HS PRN PRN Reason: Insomnia - Labs Labs: 04/16/18 09:04 04/13/18 09:20 Assessment and Plan (1) Constipation Status: Acute - Assessment and Plan (Free Text) Plan: Status: Acute (2) Status post right knee replacement Status: Acute (3) Hypertension Status: Chronic (4) Morbid obesity with BMI of 50.0-59.9, adult Status: Chronic (5) Primary osteoarthritis of right knee Status: Chronic - Assessment and Plan (Free Text) Plan: Continue Meds as per JUN C/w Lactulose 20 gm BID PRN for Constipation Continue IV Cefazolin ID Onboard Media Librarian Consult Abdominal U/S Complete and Transvaginal U/S PT / OT .
--- NOTE | 2018-04-17 06:33 | CP.PCM.PN ---
Subjective - Date & Time of Evaluation Date of Evaluation: 04/16/18 Time of Evaluation: 19:15 - Subjective Subjective: Seen and examined at the bed side. Continue to complain pain to the right knee, aggravated by movement. Denies fever or chills. ID, Coating Supervisor and the Orthopedist onboard. Objective - Vital Signs/Intake and Output Vital Signs (last 24 hours): Temp Pulse Resp BP Pulse Ox 99.6 F 87 20 123/71 99 04/16/18 19:48 04/16/18 19:48 04/16/18 19:48 04/16/18 19:48 04/16/18 19:48 - Medications Medications: Current Medications Acetaminophen (Tylenol 325mg Tab) 650 mg PO Q4 PRN PRN Reason: Fever 101 degrees fahrenheit Acetaminophen (Tylenol 325mg Tab) 650 mg PO Q4 PRN PRN Reason: for pain level 1-3 Docusate Sodium (Colace) 100 mg PO BID [facility] Last Admin: 04/16/18 16:31 Dose: 100 mg Enoxaparin Sodium (Lovenox) 40 mg SC Q24H [facility]; Protocol Last Admin: 04/16/18 12:35 Dose: 40 mg Ergocalciferol (Drisdol 50,000 Intl Units Cap) 1 cap PO QWK [facility] Famotidine (Pepcid) 20 mg PO BID [facility] Last Admin: 04/16/18 16:31 Dose: 20 mg Ferrous Sulfate (Feosol) 325 mg PO DAILY [facility] Last Admin: 04/16/18 12:35 Dose: 325 mg Lactulose (Enulose) 20 gm PO Q12 PRN PRN Reason: Constipation Last Admin: 04/16/18 21:44 Dose: 20 gm Losartan Potassium (Cozaar) 100 mg PO DAILY [facility] Last Admin: 04/16/18 12:35 Dose: 100 mg Multivitamins/Minerals (Therapeutic-M Tab) 1 tab PO DAILY [facility] Last Admin: 04/16/18 12:36 Dose: 1 tab Oxybutynin Chloride (Ditropan Tab) 5 mg PO BID [facility] Last Admin: 04/16/18 16:31 Dose: 5 mg Oxycodone/Acetaminophen (Percocet 5/325 Mg Tab) 2 tab PO Q4 PRN PRN Reason: Pain, severe (8-10) Stop: 04/18/18 18:18 Last Admin: 04/17/18 05:44 Dose: 2 tab Oxycodone/Acetaminophen (Percocet 5/325 Mg Tab) 1 tab PO Q4 PRN PRN Reason: for pain level 4-7 Stop: 04/18/18 18:23 Zolpidem Tartrate (Ambien) 5 mg PO HS PRN PRN Reason: Insomnia - Labs Labs: 04/16/18 09:04 04/13/18 09:20 - Additional Findings Additional findings: Date of service: 04/16/2018 HISTORY: Bleeding x 3 days. COMPARISON: None available. TECHNIQUE: FINDINGS: Technically limited examination due to body habitus and difficulty in positioning patient appropriately. UTERUS: Measures 15.5 x 9.2 x 8.2 cm. Heterogeneous. There is a pedunculated fibroid on the right side measuring approximately 8.2 Cm in greatest dimension. Additional masses are suspected but not discretely demonstrated on this examination. ENDOMETRIUM: The endometrium could not be visualized, likely due to uterine fibroids. No fluid is appreciated within the endometrial cavity. CERVIX: No cervical abnormality identified. RIGHT OVARY: Not visualized LEFT OVARY: Not visualized FREE FLUID: No significant free fluid noted. OTHER FINDINGS: None. IMPRESSION: Probable multi fibroid uterus. Discrete pedunculated subserosal 8.2 cm right- sided uterine fibroid demonstrated. Endometrium could not be evaluated. Limited examination. Assessment and Plan (1) Constipation Status: Acute (2) Status post right knee replacement Status: Acute (3) Hypertension Status: Chronic (4) Morbid obesity with BMI of 50.0-59.9, adult Status: Chronic (5) Primary osteoarthritis of right knee Status: Chronic (6) Uterine fibroid Assessment & Plan: Vaginal Bleed due to most Likely Fibroid Status: Acute (7) Right renal mass Assessment & Plan: Mot Likely Benign Renal CT with contrast Status: Chronic - Assessment and Plan (Free Text) Plan: Continue Current Care Coating Supervisor on board
[2018-04-17] MEDS: Enoxaparin 40 mg Syringe SC SCH (09:28)
[2018-04-17] MEDS: Multivitamin With Minerals Tab PO SCH (09:28)
--- NOTE | 2018-04-17 13:34 | CP.PCM.PN ---
Subjective - Date & Time of Evaluation Date of Evaluation: 04/17/18 Time of Evaluation: 09:00 - Subjective Subjective: events noted iv antibiotic on hold Objective - Vital Signs/Intake and Output Vital Signs (last 24 hours): Temp Pulse Resp BP Pulse Ox 99.0 F 81 20 109/69 96 04/17/18 08:29 04/17/18 08:29 04/17/18 08:29 04/17/18 08:29 04/17/18 08:29 - Medications Medications: Current Medications Acetaminophen (Tylenol 325mg Tab) 650 mg PO Q4 PRN PRN Reason: Fever 101 degrees fahrenheit Acetaminophen (Tylenol 325mg Tab) 650 mg PO Q4 PRN PRN Reason: for pain level 1-3 Docusate Sodium (Colace) 100 mg PO BID [facility] Last Admin: 04/17/18 09:28 Dose: 100 mg Enoxaparin Sodium (Lovenox) 40 mg SC Q24H [facility]; Protocol Last Admin: 04/17/18 09:28 Dose: 40 mg Ergocalciferol (Drisdol 50,000 Intl Units Cap) 1 cap PO QWK [facility] Famotidine (Pepcid) 20 mg PO BID [facility] Last Admin: 04/17/18 09:28 Dose: 20 mg Ferrous Sulfate (Feosol) 325 mg PO DAILY [facility] Last Admin: 04/17/18 09:28 Dose: 325 mg Lactulose (Enulose) 20 gm PO Q12 PRN PRN Reason: Constipation Last Admin: 04/16/18 21:44 Dose: 20 gm Losartan Potassium (Cozaar) 100 mg PO DAILY [facility] Last Admin: 04/17/18 09:28 Dose: 100 mg Multivitamins/Minerals (Therapeutic-M Tab) 1 tab PO DAILY [facility] Last Admin: 04/17/18 09:28 Dose: 1 tab Oxybutynin Chloride (Ditropan Tab) 5 mg PO BID [facility] Last Admin: 04/17/18 09:28 Dose: 5 mg Oxycodone/Acetaminophen (Percocet 5/325 Mg Tab) 2 tab PO Q4 PRN PRN Reason: Pain, severe (8-10) Stop: 04/18/18 18:18 Last Admin: 04/17/18 13:03 Dose: 2 tab Oxycodone/Acetaminophen (Percocet 5/325 Mg Tab) 1 tab PO Q4 PRN PRN Reason: for pain level 4-7 Stop: 04/18/18 18:23 Zolpidem Tartrate (Ambien) 5 mg PO HS PRN PRN Reason: Insomnia - Labs Labs: 04/16/18 09:04 04/13/18 09:20 - Constitutional Appears: Non-toxic, Chronically Ill - Head Exam Head Exam: NORMOCEPHALIC - Eye Exam Eye Exam: absent: Scleral icterus - ENT Exam ENT Exam: Mucous Membranes Dry - Neck Exam Neck Exam: absent: Lymphadenopathy - Respiratory Exam Respiratory Exam: Decreased Breath Sounds - Cardiovascular Exam Cardiovascular Exam: REGULAR RHYTHM - GI/Abdominal Exam GI & Abdominal Exam: Distended, Soft - Rectal Exam Rectal Exam: Deferred - Exam Exam: NORMAL INSPECTION Assessment and Plan (1) Morbid obesity with BMI of 50.0-59.9, adult Status: Chronic (2) Primary osteoarthritis of right knee Status: Chronic
--- NOTE | 2018-04-17 16:27 | CP.PCM.PN ---
Subjective - Date & Time of Evaluation Date of Evaluation: 04/17/18 Time of Evaluation: 11:00 - Subjective Subjective: Patient seen and examined at bedside with Dr. Mendoza. Pain well controlled. No acute events overnight. No new complaints. Objective - Vital Signs/Intake and Output Vital Signs (last 24 hours): Temp Pulse Resp BP Pulse Ox 99.0 F 81 20 109/69 96 04/17/18 08:29 04/17/18 08:29 04/17/18 08:29 04/17/18 08:29 04/17/18 08:29 - Medications Medications: Current Medications Acetaminophen (Tylenol 325mg Tab) 650 mg PO Q4 PRN PRN Reason: Fever 101 degrees fahrenheit Acetaminophen (Tylenol 325mg Tab) 650 mg PO Q4 PRN PRN Reason: for pain level 1-3 Docusate Sodium (Colace) 100 mg PO BID [facility] Last Admin: 04/17/18 16:18 Dose: 100 mg Enoxaparin Sodium (Lovenox) 40 mg SC Q24H [facility]; Protocol Last Admin: 04/17/18 09:28 Dose: 40 mg Ergocalciferol (Drisdol 50,000 Intl Units Cap) 1 cap PO QWK [facility] Famotidine (Pepcid) 20 mg PO BID [facility] Last Admin: 04/17/18 16:18 Dose: 20 mg Ferrous Sulfate (Feosol) 325 mg PO DAILY [facility] Last Admin: 04/17/18 09:28 Dose: 325 mg Lactulose (Enulose) 20 gm PO Q12 PRN PRN Reason: Constipation Last Admin: 04/16/18 21:44 Dose: 20 gm Losartan Potassium (Cozaar) 100 mg PO DAILY [facility] Last Admin: 04/17/18 09:28 Dose: 100 mg Multivitamins/Minerals (Therapeutic-M Tab) 1 tab PO DAILY [facility] Last Admin: 04/17/18 09:28 Dose: 1 tab Oxybutynin Chloride (Ditropan Tab) 5 mg PO BID [facility] Last Admin: 04/17/18 16:18 Dose: 5 mg Oxycodone/Acetaminophen (Percocet 5/325 Mg Tab) 2 tab PO Q4 PRN PRN Reason: Pain, severe (8-10) Stop: 04/18/18 18:18 Last Admin: 04/17/18 13:03 Dose: 2 tab Oxycodone/Acetaminophen (Percocet 5/325 Mg Tab) 1 tab PO Q4 PRN PRN Reason: for pain level 4-7 Stop: 04/18/18 18:23 Zolpidem Tartrate (Ambien) 5 mg PO HS PRN PRN Reason: Insomnia - Labs Labs: 04/16/18 09:04 04/13/18 09:20 - Extremities Exam Additional comments: R knee: Dressings CDI, mild swelling 2nd to surgery wound CDI with fredrick sensation intact SP/DP/TN motor intact EHL/FHL/TA/G pedal pulses intact calves soft NT Assessment and Plan (1) Status post right knee replacement Assessment & Plan: POD#7 s/p R TKA -b/l LE duplex to r/o LE DVT -PT/OT advance to TTWB -DVT ppx -CPM as per order and knee immobilizer only when OOB ambulating -above d/w Dr. Daniel Randolph in agreement Status: Acute
[2018-04-18] MEDS: Oxycodone/Acetaminophen 5/325 mg Tab PO PRN ×4 (07:16→22:30)
[2018-04-18] MEDS: Enoxaparin 40 mg Syringe SC SCH (08:13)
[2018-04-18] MEDS: Multivitamin With Minerals Tab PO SCH (08:14)
--- NOTE | 2018-04-18 08:59 | RAD ---
Date of service: 04/17/2018 PROCEDURE: Right Knee Radiographs. HISTORY: s/p TKR COMPARISON: None. FINDINGS: BONES: No acute fracture. JOINTS: Status post right total knee replacement. Prosthesis grossly intact. JOINT EFFUSION: None. OTHER FINDINGS: Postsurgical changes in anterior soft tissues with anterior staple line. IMPRESSION: Status post right TKR.
[2018-04-18] MEDS ORDERED: Iodixanol 320 MG/ML 100 ML BOTTLE IV ONE (16:23)
[2018-04-18] MEDS ORDERED: Sodium Chloride 0.9% 50 ML IV ONE (16:23)
[2018-04-18] MEDS ORDERED: Oxycodone/Acetaminophen 5/325 mg Tab PO PRN (18:44)
[2018-04-19] MEDS: Oxycodone/Acetaminophen 5/325 mg Tab PO PRN ×5 (02:11→21:09)
[2018-04-19] MEDS: Enoxaparin 40 mg Syringe SC SCH (08:24)
[2018-04-19] MEDS: Multivitamin With Minerals Tab PO SCH (08:25)
[2018-04-20] MEDS: Oxycodone/Acetaminophen 5/325 mg Tab PO PRN ×3 (01:24→12:25)
[2018-04-20] MEDS: Enoxaparin 40 mg Syringe SC SCH (08:01)
[2018-04-20] MEDS: Multivitamin With Minerals Tab PO SCH (08:01)
[2018-04-20 08:02] VITALS: BP 125/76; PULSE 84
[2018-04-20 08:56] VITALS: TEMP 98.4; O2SAT 100
--- NOTE | 2018-04-21 00:55 | CP.PCM.PN ---
Subjective - Date & Time of Evaluation Date of Evaluation: 04/17/18 Time of Evaluation: 08:30 - Subjective Subjective: Seen and examined at the bed side. Continue to complain pain to the right knee, aggravated by movement. Denies fever or chills. ID, Application Developer and the Orthopedist onboard. Objective - Vital Signs/Intake and Output Vital Signs (last 24 hours): Temp Pulse Resp BP Pulse Ox 98.4 F 84 20 125/76 100 04/20/18 08:00 04/20/18 08:00 04/20/18 08:00 04/20/18 08:00 04/20/18 08:00 - Labs Labs: 04/16/18 09:04 04/13/18 09:20 - Additional Findings Additional findings: Date of service: 04/17/2018 PROCEDURE: Right Knee Radiographs. HISTORY: s/p TKR COMPARISON: None. FINDINGS: BONES: No acute fracture. JOINTS: Status post right total knee replacement. Prosthesis grossly intact. JOINT EFFUSION: None. OTHER FINDINGS: Postsurgical changes in anterior soft tissues with anterior staple line. IMPRESSION: Status post right TKR. Assessment and Plan (1) Constipation Status: Acute (2) Status post right knee replacement Status: Acute (3) Uterine fibroid Status: Acute (4) Hypertension Status: Chronic (5) Morbid obesity with BMI of 50.0-59.9, adult Status: Chronic (6) Primary osteoarthritis of right knee Status: Chronic (7) Right renal mass Status: Acute (8) Vaginal bleeding Status: Acute - Assessment and Plan (Free Text) Plan: Continue Current Care Renal CT with Contrast
--- NOTE | 2018-04-21 00:56 | CP.PCM.PN ---
Subjective - Date & Time of Evaluation Date of Evaluation: 04/19/18 Time of Evaluation: 10:15 - Subjective Subjective: Seen and examined at the bed side. Continue to complain pain to the right knee, aggravated by movement. Denies fever or chills. ID, Manager Internet and the Orthopedist onboard. DVT Ruled out. Renal CT for Renal MAss- Benign Tumor, and advised Follw up U/S in 3-6 Months. I have endorsed to the PCP, , and patient Informed and verbalized understanding. Objective - Vital Signs/Intake and Output Vital Signs (last 24 hours): Temp Pulse Resp BP Pulse Ox 98.4 F 84 20 125/76 100 04/20/18 08:00 04/20/18 08:00 04/20/18 08:00 04/20/18 08:00 04/20/18 08:00 - Labs Labs: 04/16/18 09:04 04/13/18 09:20 - Additional Findings Additional findings: Date of service: 04/17/2018 PROCEDURE: CT Abdomen and Pelvis without intravenous contrast HISTORY: RT. KIDNEY MASS COMPARISON: Abdominal ultrasound 04/16/2018 TECHNIQUE: With and without contrast. . Contrast dose: 95 mL Visipaque 320 Radiation dose: Total exam DLP = 3964.35 mGy-cm. This CT exam was performed using one or more of the following dose reduction techniques: Automated exposure control, adjustment of the mA and/or kV according to patient size, and/or use of iterative reconstruction technique. 2.5 mm contiguous axial sections were acquired through the kidneys without intravenous contrast, during the arterial phase, during the nephrographic phase and during the delayed, excretory phase. Sagittal and coronal images were reformatted. FINDINGS: LOWER THORAX: Unremarkable. LIVER: Unremarkable. No gross lesion or ductal dilatation. GALLBLADDER AND BILE DUCTS: Cholelithiasis. No mural thickening or pericholecystic fluid. PANCREAS: Unremarkable. No gross lesion or ductal dilatation. SPLEEN: Unremarkable. ADRENALS: Unremarkable. No mass. KIDNEYS AND URETERS: In the upper pole of the right kidney, there is an elongated low-attenuation lesion measuring approximately 4 x 7 mm. It is nonspecific. It cannot be evaluated on the basis attenuation measurement due to its small size. Does not demonstrate gross enhancement. There is no other renal mass identified elsewhere in either kidney. This lesion in the upper pole right kidney corresponds to an elongated echogenic lesion on ultrasound examination of 04/16/2018. 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 However, follow- up with ultrasound examination in 3-6 months is advised. There is no other renal mass identified. There is no calculus or hydronephrosis. Excretory phase images demonstrate no filling defect of the renal collecting system. Please note that the distal aspect of both ureters is poorly opacified. VASCULATURE: Unremarkable. No aortic aneurysm. No aortic atherosclerotic calcification or mural plaque present. BOWEL: Unremarkable. No obstruction. No gross mural thickening. APPENDIX: Unremarkable. Normal appendix. PERITONEUM: Unremarkable. No free fluid. No free air. LYMPH NODES: Unremarkable. No enlarged lymph nodes. BLADDER: Unremarkable. REPRODUCTIVE: Enlarged globular multi fibroid uterus. There is extensive coarse calcifications seen within a large left-sided uterine fibroid. BONES: No acute fracture. OTHER FINDINGS: None. IMPRESSION: 4 x 7 mm low-attenuation lesion in the upper pole right kidney corresponding to an echogenic lesion identified on ultrasound examination of 04/16/2018. Most likely, this represents a small angiomyolipoma. However, short interval follow- up with ultrasound examination is advised to assess for interval stability. Enlarged multi fibroid uterus. Cholelithiasis without evidence of cholecystitis. No other significant abnormality. Assessment and Plan (1) Constipation Assessment & Plan: (2) Status post right knee replacement Status: Acute (3) Uterine fibroid Status: Acute (4) Hypertension Status: Chronic (5) Morbid obesity with BMI of 50.0-59.9, adult Status: Chronic (6) Primary osteoarthritis of right knee Status: Chronic (7) Right renal mass Status: Acute (8) Vaginal bleeding Status: Acute - Assessment and Plan (Free Text) Plan: Continue Current Care Follow up Renal U/S in 3-6 months for Possible Renal Mass Status: Chronic
--- NOTE | 2018-04-21 00:56 | CP.PCM.PN ---
Subjective - Date & Time of Evaluation Date of Evaluation: 04/18/18 Time of Evaluation: 08:35 - Subjective Subjective: Seen and examined at the bed side. Continue to complain pain to the right knee, aggravated by movement. Denies fever or chills. ID, Truck Manager and the Orthopedist onboard. DVT Ruled out. Objective - Vital Signs/Intake and Output Vital Signs (last 24 hours): Temp Pulse Resp BP Pulse Ox 98.4 F 84 20 125/76 100 04/20/18 08:00 04/20/18 08:00 04/20/18 08:00 04/20/18 08:00 04/20/18 08:00 - Labs Labs: 04/16/18 09:04 04/13/18 09:20 - Additional Findings Additional findings: Date of service: 04/17/2018 PROCEDURE: Bilateral lower extremity venous duplex Doppler. HISTORY: HUMA LOWER EXTREM. VENOUS DUPLEX. EDEMA COMPARISON: None available. TECHNIQUE: Bilateral common femoral, superficial femoral, popliteal and posterior tibial veins were evaluated. Flow was assessed with color Doppler, compressibility, assessment of phasic flow and augmentation response. FINDINGS: COMMON FEMORAL VEIN: Right CFV: Unremarkable. Left CFV: Unremarkable. SUPERFICIAL FEMORAL VEIN: Right SFV: Unremarkable. Left SFV: Unremarkable. POPLITEAL VEIN: Right Popliteal: Unremarkable. Left Popliteal: Unremarkable. POSTERIOR TIBIAL VEIN: Right PTV: Unremarkable. Left PTV: Unremarkable. OTHER FINDINGS: None. IMPRESSION: No evidence of deep venous thrombosis in the right or left lower extremity.. Assessment and Plan (1) Constipation Assessment & Plan: (2) Status post right knee replacement Status: Acute (3) Uterine fibroid Status: Acute (4) Hypertension Status: Chronic (5) Morbid obesity with BMI of 50.0-59.9, adult Status: Chronic (6) Primary osteoarthritis of right knee Status: Chronic (7) Right renal mass Status: Acute (8) Vaginal bleeding Status: Acute Continue Current Care Status: Acute
--- NOTE | 2018-04-21 00:59 | CP.PCM.DIS ---
Provider - Provider Date of Admission: 04/12/18 17:34 Attending physician: Murali Hurtado MD Consults: 04/12/18 18:19 Infectious Disease Consult Routine Comment: Consulting Provider: Ron Brito Consulting Physician: Ron Brito Reason for Consult: S/P Rt TKR, low grade fever Physiatry Consult Routine Comment: Consulting Provider: Low Joiner Consulting Physician: Low Joiner Reason for Consult: S/P rt TKR 04/12/18 18:26 Orthopedic Consult Routine Comment: Consulting Provider: Rodriguez Arguelles Consulting Physician: Rodriguez Arguelles Reason for Consult: pls continue care while in TCU, S/P Rt TKR 04/12/18 18:34 Case Management Referral Routine Comment: Physician Instructions: Reason For Exam: Reason for Referral: Discharge Planning Time Spent in preparation of Discharge (in minutes): 25 Diagnosis - Discharge Diagnosis (1) Constipation Status: Acute (2) Vaginal bleeding Status: Chronic Priority: Low (3) Benign neoplasm of right kidney Status: Chronic Priority: Low (4) Status post right knee replacement Status: Acute (5) Hypertension Status: Chronic (6) Morbid obesity with BMI of 50.0-59.9, adult Status: Chronic (7) Primary osteoarthritis of right knee Status: Chronic (8) Uterine fibroid Status: Acute Hospital Course - Lab Results Lab Results: Most Recent Lab Values WBC 6.7 K/uL (4.8-10.8) 04/16/18 09:04 RBC 2.87 Mil/uL (3.80-5.20) L 04/16/18 09:04 Hgb 8.5 g/dL (12.0-16.0) L 04/16/18 09:04 Hct 26.2 % (34.0-47.0) L 04/16/18 09:04 MCV 91.2 fl (81.0-99.0) 04/16/18 09:04 MCH 29.8 pg (27.0-31.0) 04/16/18 09:04 MCHC 32.6 g/dL (33.0-37.0) L 04/16/18 09:04 RDW 14.5 % (11.5-14.5) 04/16/18 09:04 Plt Count 383 K/uL (130-400) 04/16/18 09:04 MPV 9.6 fl (7.2-11.7) 04/13/18 09:20 Neut % (Auto) 67.6 % (50.0-75.0) 04/13/18 09:20 Lymph % (Auto) 23.1 % (20.0-40.0) 04/13/18 09:20 [place] % (Auto) 8.1 % (0.0-10.0) 04/13/18 09:20 Eos % (Auto) 0.3 % (0.0-4.0) 04/13/18 09:20 Baso % (Auto) 0.9 % (0.0-2.0) 04/13/18 09:20 Neut # (Auto) 7.0 K/uL (1.8-7.0) 04/13/18 09:20 Lymph # (Auto) 2.4 K/uL (1.0-4.3) 04/13/18 09:20 [place] # (Auto) 0.8 K/uL (0.0-0.8) 04/13/18 09:20 Eos # (Auto) 0.0 K/uL (0.0-0.7) 04/13/18 09:20 Baso # (Auto) 0.1 K/uL (0.0-0.2) 04/13/18 09:20 Sodium 137 mmol/l (132-148) 04/13/18 09:20 Potassium 4.3 MMOL/L (3.6-5.0) 04/13/18 09:20 Chloride 99 mmol/L (98-107) 04/13/18 09:20 Carbon Dioxide 27 mmol/L (22-30) 04/13/18 09:20 Anion Gap 15 (10-20) 04/13/18 09:20 BUN 7 mg/dl (7-17) 04/13/18 09:20 Creatinine 0.7 mg/dl (0.7-1.2) 04/13/18 09:20 Est GFR ( Amer) > 60 04/13/18 09:20 Est GFR (Non-Af Amer) > 60 04/13/18 09:20 Random Glucose 134 mg/dL (65-105) H 04/13/18 09:20 Calcium 9.2 mg/dL (8.4-10.2) 04/13/18 09:20 Total Bilirubin 0.8 mg/dl (0.2-1.3) 04/13/18 09:20 AST 45 U/L (14-36) H D 04/13/18 09:20 ALT 8 U/L (9-52) L 04/13/18 09:20 Alkaline Phosphatase 87 U/L (38-126) 04/13/18 09:20 Total Protein 8.4 G/DL (6.3-8.2) H 04/13/18 09:20 Albumin 4.2 g/dL (3.5-5.0) 04/13/18 09:20 Globulin 4.2 gm/dL (2.2-3.9) H 04/13/18 09:20 Albumin/Globulin Ratio 1.0 (1.0-2.1) 04/13/18 09:20 Urine Color Red (YELLOW) 04/14/18 16:05 Urine Clarity Cloudy (Clear) 04/14/18 16:05 Urine pH 6.0 (5.0-8.0) 04/14/18 16:05 Ur Specific [place] 1.018 (1.003-1.030) 04/14/18 16:05 Urine Protein 30 mg/dL (NEGATIVE) 04/14/18 16:05 Urine Glucose (UA) Neg mg/dL (NEGATIVE) 04/14/18 16:05 Urine Ketones Negative mg/dL (NEGATIVE) 04/14/18 16:05 Urine Blood Large (NEGATIVE) 04/14/18 16:05 Urine Nitrate Negative (NEGATIVE) 04/14/18 16:05 Urine Bilirubin Negative (NEGATIVE) 04/14/18 16:05 Urine Urobilinogen 0.2-1.0 mg/dL (0.2-1.0) 04/14/18 16:05 Ur Leukocyte Esterase Neg John/uL (Negative) 04/14/18 16:05 Urine RBC (Auto) 2408 /hpf (0-3) H 04/14/18 16:05 Urine Microscopic WBC 1 /hpf (0-5) 04/14/18 16:05 Ur Squamous Epith Cells 6 /hpf (0-5) H 04/14/18 16:05 Urine Bacteria Rare (<OCC) 04/14/18 16:05 Discharge Exam - Head Exam Head Exam: NORMOCEPHALIC Discharge Plan - Follow Up Plan Condition: GOOD Disposition: REHAB FACILITY/REHAB UNIT Instructions: Total Knee Replacement (DC), Obesity (DC), Obesity (GEN), Hypertension (DC), Hypertension (GEN), Constipation (DC), Constipation (GEN)
== END 2018-04-20 15:05 | DRG 560 ==
LOC: H.TCU 17:34
PROVIDERS: ADMIT Internal Medicine; ATTEND Internal Medicine
PROC: F07Z9FZ Gait Training/Functional Ambulation Treatment using Assistive, Adaptive, Supportive or Protective Equipment (ICD-10-PCS; principal; 2018-04-12)
PROC: F08Z4FZ Home Management Treatment using Assistive, Adaptive, Supportive or Protective Equipment (ICD-10-PCS; 2018-04-12)
PROC: F07L6FZ Therapeutic Exercise Treatment of Musculoskeletal System - Lower Back / Lower Extremity using Assistive, Adaptive, Supportive or Protective Equipment (ICD-10-PCS; 2018-04-13)
DX: Z47.1 Aftercare following joint replacement surgery (principal); Z68.43 Body mass index [BMI] 50.0-59.9, adult; Z96.651 Presence of right artificial knee joint; E66.01 Morbid (severe) obesity due to excess calories; M17.0 Bilateral primary osteoarthritis of knee; E11.9 Type 2 diabetes mellitus without complications; N28.89 Other specified disorders of kidney and ureter; N93.8 Other specified abnormal uterine and vaginal bleeding; D25.9 Leiomyoma of uterus, unspecified; K59.00 Constipation, unspecified; E78.5 Hyperlipidemia, unspecified; E78.00 Pure hypercholesterolemia, unspecified; I10 Essential (primary) hypertension; G47.30 Sleep apnea, unspecified